=== PATIENT | male | born 1960 | race Caucasian/White ===

== ENCOUNTER 2016-08-28 14:53 | Inpatient (IN) | payer OTHER ==
[~2016-08-28] VITALS: Ht 182.9 cm; Wt 102.1 kg
[~2016-08-28 14:53] MED LIST: CALC-226 PO; DOCU-144 PO; HYDR-1189 PO; [UNRECOGNIZED DRUG - CODE] PO
[2016-08-28 15:02] VITALS: BP 122/92; PULSE 109; RESP 14; TEMP 97.9; O2SAT 90
--- NOTE | 2016-08-28 15:13 | NUR ---
Patient to ER bed 2 to gown for evaluation. Side rails up. Report given to CHARLENE Lei.
--- NOTE | 2016-08-28 15:20 | NUR ---
Pt presents to ED with c/o of constipation, gas, bloating , abdominal discomfort and urinary retention. Pt states he took magnesium citrate yesterday and today at noon but was ineffective. Pt also said that his johnson catheter was removed yesterday. Abdomen hard and distended. Denies nausea, vomiting and diarrhea. Will cont to monitor.
--- NOTE | 2016-08-28 15:55 | NUR ---
ER Dr. Young at bedside examining patient.
--- NOTE | 2016-08-28 16:15 | NUR ---
# 16 FR Guerrero catheter with use of sterile technique. Immediate return of 900 cc yellow urine noted. Bedside drainage bag placed below level of bladder. Urine sample collected and sent to lab. Pt tolerated procedure well. Patient unable to toilet self.
[2016-08-28] MEDS ORDERED: PANTOPRAZOLE SODIUM 40 MG/VIAL (PROTONIX) IVP ONE (17:30)
[2016-08-28 17:48] LABS: HEMATOCRIT 46.3 % (36-54); HEMOGLOBIN 15.6 g/dL (14.0-18.0); MEAN CORPUSCULAR HEMOGLOBIN 30 pg (27-31); MEAN CORPUSCULAR HGB CONC 34 % (32-36); MEAN CORPUSCULAR VOLUME 89 fL (79.0-98.0); PLATELET COUNT (AUTO) 400 K/uL (130-430); RED BLOOD CELL COUNT(AUTO) 5.24 MIL/uL (4.2-6.2); RED CELL DISTRIBUTION WIDTH 12.5 % (9.0-15.0); WHITE BLOOD COUNT (AUTO) 18.6 K/uL (4.8-10.8)
[2016-08-28 17:59] LABS: CALCIUM 8.8 mg/dL (8.4-11.0); CREATININE 2.51 mg/dL (0.55-1.30); POTASSIUM 3.5 mmol/L (3.5-5.1)
[2016-08-28] MEDS ORDERED: MAG HYDROX/AL HYDROX/SIMETH 30 ML, BELLADONNA ALKALOIDS/PHENOBARB 10 ML, LIDOCAINE VISC... PO ONE ×3 (18:00)
[2016-08-28 18:16] LABS: BAND % (MANUAL) 4 % (0-6); BASOPHILS % (MANUAL) 0 % (0-2); EOSINOPHILS % (MANUAL) 0 % (0-7); LYMPHOCYTES % (MANUAL) 5 % (20-46); MONOCYTES % (MANUAL) 9 % (0-11)
[2016-08-28 18:48] LABS: BILIRUBIN,URINE NEGATIVE (NEGATIVE); BLOOD, URINE 3+ (NEGATIVE); COLOR,URINE YELLOW (YELLOW); GLUCOSE,URINE 2+ (NEGATIVE); KETONES,URINE TRACE (NEGATIVE); NITRITE, URINE NEGATIVE (NEGATIVE); PROTEIN URINE 2+ (NEGATIVE); UROBILINOGEN,URINE 0.2 (0.2-1.0)
[2016-08-28 18:57] LABS: CLARITY/URINE SLIGHTLY HAZY (CLEAR); LEUKOCYTE ESTERASE ,URINE 1+ (NEGATIVE)
[2016-08-28 18:59] LABS: BACTERIA,URINE FEW /HPF (None Seen); MUCUS,URINE None Seen /LPF (None Seen)
--- NOTE | 2016-08-28 19:10 | NUR ---
Care and report recieved from Do CHANG. Pt states that he had emergency hernia last week. Pt had has his johnson catheter removed yesterday and hasn't been able to urinate. Pt had a johnson put in at the ER. Pt had 1200 mL of urine in johnson bag. Pt is distended. ABD is tender in all abd kelly. Pt rates his pain 4/10. Pt also has epigastric pain with burping. Lung sounds diminished in the L lung. Pt also has been constipated since yesterday morning. Pt on residential monitor and will continue to monitor. No other injuries or complaints mentioned/noted. Addendum: 08/28/16 at 2124 by SOWMYA Denies N, V, and diarrhea.
--- NOTE | 2016-08-28 19:15 | NUR ---
Lung sounds diminished in the L lobes with 02 saturation of 91%. MD made aware. No changes in orders.
--- NOTE | 2016-08-28 19:30 | NUR ---
Spoke with . Sepsis protocol started. No fluid being administered at this moment.
[2016-08-28] MEDS ORDERED: cefTRIAXone 1 GM VIAL IM ONE (19:45)
[2016-08-28] MEDS ORDERED: cefTRIAXone 1 GM IVPB PREMIX 50 ML IV ONE (19:57)
[2016-08-28] MEDS ORDERED: cefTRIAXone 1 GM in D5W 50 ML IV ONE (20:00)
[2016-08-28] MEDS: cefTRIAXone 1 GM IVPB PREMIX 50 ML IV SCH (20:00)
--- NOTE | 2016-08-28 20:03 | NUR ---
Cannot wheel pt down to Med Surg. Pt was taken by Cost And Risk Analysis Manager.
--- NOTE | 2016-08-28 20:47 | NUR ---
ADMISSION NOTE Received patient from ER via brigido, received report from KELSIE CHANG. Patient admitted with diagnosis of ACUTE RENAL FAILURE/ URINARY RETENTION. Patient oriented to hospital routine, call light, toileting and safety-patient verbalized understanding.
--- NOTE | 2016-08-28 20:50 | NUR ---
ROUNDS PATIENT IN BED, AWAKE, ALERT, ORIENTED, DENIES ANY PAIN AND DISCOMFORT AT THIS TIME. ASSESSMENT DONE AND DOCUMENTED. SEE FLOWSHEET. NEEDS ATTENDED TO. SAFETY MEASURES IN PLACED. ORIENTED TO HIS ROOM. TV AND CALL LIGHT. PLAN OF CARE DISCUSSED AND PATIENT VERBALIZED UNDERSTANDING. CALL LIGHT PLACED WITH PATIENT.
--- NOTE | 2016-08-28 20:55 | NUR ---
Note saravanan in EDM - 08/28/16 at 2133 by SOWMYA Patient will be admitted to care of Dr. Schaffer. Admitted to Med Surg unit. Will go to room 129B. Summary report printed. Report given to Chava CHANG.
[2016-08-28 21:10] VITALS: BP 142/90; PULSE 87; RESP 18; TEMP 98.9; O2SAT 92
[2016-08-28] MEDS: 0.45% NACL 1,000 ML IV SCH (21:36)
--- NOTE | 2016-08-28 21:48 | NUR ---
CONSULT: DR ALEXANDRE Consult for Dr Alexandre was called, s/w Nguyen
--- NOTE | 2016-08-28 23:17 | NUR ---
DR. MARIE PAGED AND TALKED TO DR. MARIE, PATIENT C/O HEARTBURN, NEW ORDER FOR MYL[place]A 15 ML Q 6 HRS PRN . WILL CONTINUE TO MONITOR.
[2016-08-28] MEDS: MAG-AL HYDROX/SIMETH 30 ML UDC PO PRN (23:50)
[2016-08-29] VITALS (7 sets, daily range): BP systolic 120–159; BP diastolic 77–97; PULSE 77–98; RESP 16–21; TEMP 97.2–98.6; O2SAT 91–97
--- NOTE | 2016-08-29 02:00 | NUR ---
PATIENT RESTING: Patient resting quietly. No acute distress noted. Vital signs within normal range.
--- NOTE | 2016-08-29 04:00 | NUR ---
PATIENT RESTING: Patient resting quietly. No acute distress noted. Vital signs within normal range.
[2016-08-29 06:42] LABS: BASOPHILS % (AUTO) 0.2 % (0.0-2.0); HEMATOCRIT 44.5 % (36-54); LYMPHOCYTES # (AUTO) 0.5 K/uL (1.0-5.5); LYMPHOCYTES % (AUTO) 2.6 % (20.5-51.5); MEAN CORPUSCULAR HEMOGLOBIN 30 pg (27-31); MEAN CORPUSCULAR HGB CONC 34 % (32-36); MEAN CORPUSCULAR VOLUME 89 fL (79.0-98.0); MONOCYTES # (AUTO) 1.6 K/uL (0.0-1.0); MONOCYTES % (AUTO) 9.3 % (1.7-9.3); NEUTROPHILS # (AUTO) 15.2 K/uL (1.8-7.7); NEUTROPHILS % (AUTO) 87.9 % (40.0-70.0); RED BLOOD CELL COUNT(AUTO) 4.98 MIL/uL (4.2-6.2); RED CELL DISTRIBUTION WIDTH 12.9 % (9.0-15.0); WHITE BLOOD COUNT (AUTO) 17.3 K/uL (4.8-10.8)
--- NOTE | 2016-08-29 06:50 | NUR ---
CLOSING NOTES PATIENT AWAKE, VITALS STABLE, NO PAIN AT THIS TIME. ALL NEEDS ATTENDED TO. CALL LIGHT PLACED WITH PATIENT.
[2016-08-29 07:05] LABS: CALCIUM 8.6 mg/dL (8.4-11.0); POTASSIUM 3.5 mmol/L (3.5-5.1)
[2016-08-29 07:06] LABS: ALBUMIN 2.7 g/dL (3.4-4.8); CREATININE 1.4 mg/dL (0.55-1.30); TOTAL BILIRUBIN 0.7 mg/dL (0.0-1.0); TOTAL PROTEIN, SERUM 6.8 g/dL (6.4-8.3)
--- NOTE | 2016-08-29 07:30 | NUR ---
initial rounds: pt on bed awake, alert and oriented. i.v. access patent. at bedside. call light within reach.
[2016-08-29 08:16] LABS: PLATELET COUNT (AUTO) 459 K/uL (130-430)
[2016-08-29] MEDS: MAG-AL HYDROX/SIMETH 30 ML UDC PO PRN (08:52)
--- NOTE | 2016-08-29 08:56 | NUR ---
med pass: med given and pt compliant.
[2016-08-29] MEDS: 0.45% NACL 1,000 ML IV SCH ×2 (09:01→22:37)
--- NOTE | 2016-08-29 14:49 | NUR ---
Consult was call Rg:small bowl obstruction spoke with Peyton from Dr Bautista sanchez.
[2016-08-29] MEDS ORDERED: METOCLOPRAMIDE HCL 10 MG/2 ML VIAL IVP PRN (15:00)
--- NOTE | 2016-08-29 15:15 | NUR ---
Evonne visit: Dr. Felix seen the pt.
[2016-08-29] MEDS ORDERED: TAMSULOSIN HCL 0.4 MG CAP PO ONE (15:45)
--- NOTE | 2016-08-29 15:47 | NUR ---
Nutrition Note Received consult from RN via phone that patient had questions regarding his diet. RD spoke to pt and family who were concerned about pt's high blood sugars (noted, today's values: 256; pt does not have history of diabetes). Pt's family member stated that pt has only been eating bites of food. Pt also stated that he has bad acid reflux and the current medication is not working; requested that RD relay message to MD. RD recommended oral supplementation. RD spoke with Dr. Schaffer on the phone regarding pt's acid reflux and current PO intake. MD agreed to oral supplement Boost Glucose Control BID to provide additional 500 kcal and [address] supplement order per MD. Addendum: 08/29/16 at [address] UPDATE/CORRECTION: RD did not place supplement order d/t active diet order for clear liquid diet. RD to follow up for nutritional assessment.
--- NOTE | 2016-08-29 16:26 | NUR ---
rounds: pt on bed sleeping. no distress noted.
--- NOTE | 2016-08-29 17:26 | NUR ---
NGT clarification: Spoke with Dr. Baum for clarification of the NGTube Low intermittent suction and the clear liquid diet. He orders to hold for now.
--- NOTE | 2016-08-29 18:43 | NUR ---
closing notes: pt on bed resting with family at bedside. needs attended. call light within reach.
--- NOTE | 2016-08-29 19:40 | NUR ---
ROUNDS PATIENT RESTING COMFORTABLY IN BED, NOT IN DISTRESS, VITALS STABLE. DENIES ANY PAIN AND DISCOMFORT AT THIS TIME. ASSESSMENT DONE AND DOCUMENTED. IVF WITH 1/2 NS INFUSING WELL AT 80 ML/HR, IV SITE PATENT. NEEDS ATTENDED TO. SAFETY AND FALL PRECAUTION MEASURES IN PLACED. BED IN LOW AND LOCKED POSITION. CALL LIGHT PLACED WITHIN REACH.
[2016-08-29] MEDS: cefTRIAXone 1 GM IVPB PREMIX 50 ML IV SCH (20:00)
--- NOTE | 2016-08-30 | NUR ---
PATIENT RESTING: Patient resting quietly. No acute distress noted. Vital signs within normal range.
[2016-08-30 01:13] VITALS: BP 114/79; PULSE 84; RESP 16; TEMP 97.2; O2SAT 95
--- NOTE | 2016-08-30 02:15 | NUR ---
ROUNDS PATIENT ASLEEP, NO SIGNS OF ANY PAIN AND DISCOMFORT AT THIS TIME. WILL CONTINUE TO MONITOR.
--- NOTE | 2016-08-30 04:10 | NUR ---
PATIENT RESTING: Patient resting quietly. No acute distress noted. Vital signs within normal range.
[2016-08-30 06:08] LABS: BASOPHILS % (AUTO) 0.1 % (0.0-2.0); EOSINOPHILS # (AUTO) 0.1 K/uL (0.0-0.4); EOSINOPHILS % (AUTO) 0.9 % (0.0-4.0); HEMATOCRIT 35.7 % (36-54); HEMOGLOBIN 12.3 g/dL (14.0-18.0); LYMPHOCYTES # (AUTO) 0.9 K/uL (1.0-5.5); LYMPHOCYTES % (AUTO) 8.8 % (20.5-51.5); MEAN CORPUSCULAR HEMOGLOBIN 31 pg (27-31); MEAN CORPUSCULAR HGB CONC 34 % (32-36); MEAN CORPUSCULAR VOLUME 89 fL (79.0-98.0); MONOCYTES # (AUTO) 1.5 K/uL (0.0-1.0); MONOCYTES % (AUTO) 13.9 % (1.7-9.3); NEUTROPHILS % (AUTO) 76.3 % (40.0-70.0); PLATELET COUNT (AUTO) 346 K/uL (130-430); RED CELL DISTRIBUTION WIDTH 12.4 % (9.0-15.0)
[2016-08-30 06:14] LABS: WHITE BLOOD COUNT (AUTO) 10.5 K/uL (4.8-10.8)
--- NOTE | 2016-08-30 06:50 | NUR ---
CLOSING NOTES PATIENT AWAKE, VITALS STABLE, ALL NEEDS ATTENDED TO. CALL LIGHT PLACED WITHIN REACH.
[2016-08-30 06:56] VITALS: BP 107/76; PULSE 83; RESP 20; TEMP 97.2; O2SAT 91
--- NOTE | 2016-08-30 07:15 | NUR ---
initial notes: pt on bed awake alert and oriented. no distress noted. i.v. line access patent. at bedside. call light within reach.
--- NOTE | 2016-08-30 08:36 | NUR ---
rounds: pt on bed. medication given. compliant.
[2016-08-30 08:37] VITALS: BP 123/71; PULSE 92; RESP 14; TEMP 97.7; O2SAT 92
--- NOTE | 2016-08-30 08:39 | NUR ---
Nutrition Update Praneeth Scale 17 noted. Pt admitted for acute renal failure, urinary retention. Diet: clear liquid, no red BMI: 30.5 kg/m2 RD to follow per nutrition care standards.
--- NOTE | 2016-08-30 08:45 | NUR ---
rounds: pt ambulates in the hallway with assist.
[2016-08-30] MEDS ORDERED: TAMSULOSIN HCL 0.4 MG CAP PO SCH (09:00)
--- NOTE | 2016-08-30 09:30 | NUR ---
Evonne informed abdomen series result: Dr. Baum informed of abdomen series result. Also informed pt able to pass gas and had a large bowel movement. Patient wants to go home. Evonne gave clearance for discharge.
--- NOTE | 2016-08-30 12:14 | NUR ---
rounds: pt on bed with at bedside. no distress noted.
[2016-08-30 12:22] VITALS: BP 124/74; PULSE 83; RESP 14; TEMP 98; O2SAT 93
[2016-08-30 12:41] VITALS: BP 110/75; PULSE 91; RESP 17; TEMP 96.4; O2SAT 90
--- NOTE | 2016-08-30 13:00 | NUR ---
Evonne rounds: seen by Dr. Schaffer. with discharged order.
--- NOTE | 2016-08-30 14:45 | NUR ---
D/C Patient Patient given medication reconciliation form and D/C instructions. Exit Care provided. Patient verbalized understanding. MD discussed with patient the results and treatment provided. Ambulatory with steady gait for discharge to home. Patient in stable condition, ID band removed. IV catheter removed, intact and dressing applied, no active bleeding. Rx of given. Patient educated on pain management. All belongings sent with patient.
== END 2016-08-30 14:25 | disposition home or self-care (01) | DRG 699 ==
LOC: SED 14:53 → SMU 20:01
DX: N99.89 Other postprocedural complications and disorders of genitourinary system (principal); N17.9 Acute kidney failure, unspecified; K56.60 Unspecified intestinal obstruction; R33.8 Other retention of urine; Z80.42 Family history of malignant neoplasm of prostate; Z87.442 Personal history of urinary calculi
CPT/HCPCS: 36415; 71010; 74020-TC; 76770; 80048; 80053; 81000-TC; 82272; 83605; 85007; 85025; 85027; 87040-TC; 87081; 87086; 93005; 96365; 96375; 99285; C9113; J0696; J2001